=== PATIENT | male | born 1955 | race Caucasian/White ===

== ENCOUNTER 2021-05-02 15:55 | Emergency (ER) | payer MEDICARE ==
[~2021-05-02] VITALS: Ht 182.9 cm; Wt 99.8 kg
--- NOTE | 2021-05-02 16:11 | NUR ---
pt came to er c/o intermittent headache x 2 weeks. Denies n/v, fever, blurry vision. States he checked his BP and recently it has been fluctuating up to the 170s. Denies cardac hx or any other medical hx. A&ox4, ambulatory, skin is warm and dry, pulses 2+ bilaterally. On nasal cannula 2L. Pulse ox 100%. On monitor. BP 166/115.
[2021-05-02] MEDS ORDERED: ACETAMINOPHEN ES 500 MG TABLET ONE (16:29)
[2021-05-02] MEDS ORDERED: SUMATRIPTAN SUCCINATE 6 MG/0.5 ML VIAL SQ ONE (16:30)
[2021-05-02] MEDS: ACETAMINOPHEN ES 500 MG TABLET PO ONE (16:40)
[2021-05-02] MEDS: SUMATRIPTAN SUCCINATE 6 MG/0.5 ML VIAL SQ ONE (16:54)
[2021-05-02] MEDS ORDERED: AMLO-212 PO (17:02)
[2021-05-02] MEDS ORDERED: CLONIDINE HCL 0.1 MG TABLET ONE (18:13)
[2021-05-02] MEDS: CLONIDINE HCL 0.1 MG TABLET PO ONE (18:16)
--- NOTE | 2021-05-02 18:31 | NUR ---
Patient discharged to home in stable condition. Written and verbal after care instructions given. Patient verbalizes understanding of instruction.
[2021-05-02 18:32] VITALS: BP 152/109
== END 2021-05-02 18:30 | disposition home or self-care (01) ==
LOC: ER 15:58
DX: R51.9 Headache, unspecified (principal); I10 Essential (primary) hypertension; Z88.6 Allergy status to analgesic agent; Z79.899 Other long term (current) drug therapy
CPT/HCPCS: 99285; J3030